=== PATIENT | female | born 1950 | race Caucasian/White ===

== ENCOUNTER → 2018-09-27 | Outpatient (CLI) | payer MEDICARE ==
--- NOTE | 2018-09-28 08:22 | MAM ---
EXAM DESCRIPTION: 3D Screening BILATERAL : Digital Mammography. CLINICAL HISTORY: 68 years Female LUMPS BILATERAL . No personal or family history of breast cancer. Childbirth. Postmenopausal 28 years. No HRT. Lifetime risk of developing breast cancer (Tyrer-Cuzick model)(%): 6.7. COMPARISON: Baseline study at this facility.. No prior reports available. TECHNIQUE: Bilateral CC and MLO projection full-field images, digital tomosynthesis mammographic technique. Bilateral digital 2-D full-field MLO images. CAD not available for tomosynthesis or 2-D images. FINDINGS: The breast parenchymal density pattern is: Scattered areas of fibroglandular density. No skin thickening or nipple retraction. Right axillary lymph node. Focal asymmetry in the right breast at the 9:00 position of the middle third near the posterior nipple line, approximately 6.5 cm from the nipple. More anterior region of focal asymmetry in the right breast 12:00 position, 3 cm from the nipple, anterior third. No focal, stellate mass or density, focal asymmetry , and no suspicious microcalcifications left breast. IMPRESSION: BI-RADS CATEGORY: 0 - INCOMPLETE- Need additional imaging evaluation. FOLLOW-UP: Recall for additional imaging: Full-field orthogonal digital diagnostic tomosynthesis images right breast and targeted right breast ultrasound if indicated by diagnostic images.. Written communication concerning the IMPRESSION and Follow-up, will be mailed to the patient and referring health care provider. Electronically signed by: Joel Tuttle MD 09/28/2018 8:21 AM PUBLIC HEALTH REGISTRAR
== END ==
LOC: MAMMO 10:00
PROVIDERS: ATTEND Surgery
DX: Z12.31 Encounter for screening mammogram for malignant neoplasm of breast (principal)

== ENCOUNTER → 2018-10-12 | Outpatient (CLI) | payer MEDICARE ==
--- NOTE | 2018-10-12 17:56 | MAM ---
EXAM DESCRIPTION: Diagnostic Mammo,Bilateral: Digital Mammography CLINICAL HISTORY: 68 yearsFemaleABNORMAL MAMMOGRAM focal asymmetry in the anterior middle third of the right breast.. COMPARISON: Bilateral screening digital breast tomosynthesis 09/27/2018. Targeted right breast ultrasound as part of this examination.. TECHNIQUE: Bilateral LM projection full-field images, digital mammographic tomosynthesis technique. CAD not utilized. FINDINGS: The breast parenchymal density pattern is: Scattered areas of fibroglandular density. No skin thickening or nipple retraction focal asymmetry less prominent compared to the prior screening examination. One region 3 cm from the right nipple at the 12:00 position. Second region is 6 cm from the right nipple at the 8:30-9:00 position. Not associated with microcalcifications. Ultrasound: Scanning in the retroareolar superior right breast anterior third and the middle third of the right breast just lateral to the posterior nipple line. Heterogeneous fibroglandular and fatty echotexture. No dominant solid mass. No distinct cyst. No large calcifications or parenchymal edema. No overlying skin changes. Normal vascularity. IMPRESSION: Benign exam. BIRAD CATEGORY: 2 BENIGN FINDINGS. RECOMMENDATIONS: FOLLOW UP: Return to routine digital bilateral mammographic screening, one year interval from September 2018. The FINDINGS and the FOLLOW-UP plan were reviewed in person with the patient after the examination. Written communication explaining the IMPRESSION and FOLLOW-UP will be mailed to the patient and referring care provider. According to the [employer], yearly mammograms are recommended starting at age 40 and continuing as long as a woman is in good health. Any breast change noted on a breast self-exam should be reported promptly to the patient's healthcare provider. Breast MRI is recommended for women with an approximately 20-25% or greater lifetime risk of breast cancer, including women with a strong family history of breast or ovarian cancer and women who have been treated for Hodgkin's disease. A negative mammographic report should not delay tissue diagnosis in patients with significant clinical history or physical findings. Extremely dense breast tissue limits the sensitivity of digital mammography. Electronically signed by: Joel Tuttle MD 10/12/2018 5:54 PM YARD ASSOCIATE
--- NOTE | 2018-10-12 17:57 | US ---
EXAM DESCRIPTION: Breast,Right: Ultrasound CLINICAL HISTORY: 68 yearsFemaleABN MAMMO COMPARISON: Digital diagnostic tomosynthesis bilateral breasts on this visit. TECHNIQUE: Transcutaneous scanning of the right breast utilizing hunt-scale and Doppler modes. Scanning performed by the supervisor capacitor processing . Observation by Dr. Tuttle. FINDINGS: Scanning in the retroareolar superior right breast anterior third and the middle third of the right breast just lateral to the posterior nipple line. Heterogeneous fibroglandular and fatty echotexture. No dominant solid mass. No distinct cyst. No large calcifications or parenchymal edema. No overlying skin changes. Normal vascularity. IMPRESSION: 1. Bi-Rads Category 2: Benign. 2. Please refer to bilateral diagnostic tomosynthesis mammographic examination and report on this visit. The FINDINGS and the FOLLOW-UP plan were reviewed in person with the patient after the examination. Written communication explaining the IMPRESSION and FOLLOW-UP will be mailed to the patient and referring care provider. Electronically signed by: Joel Tuttle MD 10/12/2018 5:56 PM PRINCIPAL ARCHITECT
== END ==
LOC: MAMMO 11:00
PROVIDERS: ATTEND Emergency Medicine
DX: R92.8 Other abnormal and inconclusive findings on diagnostic imaging of breast (principal)